=== PATIENT | female | born 1980 | race Caucasian/White ===

== ENCOUNTER 2016-12-22 20:15 | Emergency (ER) | payer BC ==
[2016-12-22 20:22] VITALS: BP 117/91; PULSE 90; TEMP 98.5; BMI 23.9
--- NOTE | 2016-12-22 21:22 | PDOC ---
History of Present Illness - General Chief Complaint: Abscess Boil Stated Complaint: CYST Time Seen by Provider: 12/22/16 20:54 History Source: Patient - History of Present Illness Timing/Duration: other (this am) Associated Symptoms: denies: fever/chills Past History - Past Medical History Allergies/Adverse Reactions: Allergies Allergy/AdvReac Type Severity Reaction Status Date / Time No Known Allergies Allergy Verified 12/22/16 20:22 Home Medications: Ambulatory Orders NK [No Known Home Medication] 12/22/16 Other medical history: denies - Psycho/Social/Smoking Cessation Hx Suicidal Ideation: No Smoking History: Never smoked Review of Systems - Review of Systems Constitutional: No: Chills, Fever ABD/GI: No: Blood Streaked Bowels, Constipated, Diarrhea *Physical Exam - Vital Signs Last Vital Signs Temp Pulse Resp BP Pulse Ox 98.5 F 90 18 117/91 99 12/22/16 20:19 12/22/16 20:19 12/22/16 20:19 12/22/16 20:19 12/22/16 20:19 - Physical Exam General Appearance: Yes: Appropriately Dressed. No: Apparent Distress HEENT: positive: Normal Voice Neck: positive: Supple Respiratory/Chest: negative: Respiratory Distress Rectal Exam: positive: hemorrhoids (no thrombosis, NT, no bleeding) Extremity: positive: Normal Inspection Integumentary: positive: Dry, Warm Neurologic: positive: Fully Oriented, Alert, Normal Mood/Affect Medical Decision Making - Medical Decision Making 12/22/16 21:20 36 yo F, h/o hemorrhoids, here with mostly painless lump to rectal area since this am. No constipation or rectal bleeding See exam External hemorrhoid No complication at this time No constipation currently -Dc w/ instructions to use OTC prep H and sitz bath -Reasons to return d/w pt *DC/Admit/Observation/Transfer Diagnosis at time of Disposition: Hemorrhoid Qualifiers: Hemorrhoid type: unspecified Qualified Code(s): K64.9 - Unspecified hemorrhoids - Discharge Dispostion Disposition: HOME Condition at time of disposition: Good - Patient Instructions Printed Discharge Instructions: Hemorrhoids Additional Instructions: Use preparation H and warm to hot baths to shrink hemorrhoid If symptoms worsen. return to the ED
== END 2016-12-22 21:22 | disposition home or self-care (01) ==
LOC: JERFT 20:15
DX: K64.9 Unspecified hemorrhoids (principal)
CPT/HCPCS: 99281-25